=== PATIENT | female | born 1995 | race Caucasian/White ===

== ENCOUNTER → 2019-03-06 | Outpatient (CLI) | payer BC | LOC: LB 03:20 | PROVIDERS: ATTEND Obstetrics & Gynecology | DX: Z34.03 Encounter for supervision of normal first pregnancy, third trimester (principal); Z13.0 Encounter for screening for diseases of the blood and blood-forming organs and certain disorders involving the immune mechanism; Z11.4 Encounter for screening for human immunodeficiency virus [HIV]; Z11.59 Encounter for screening for other viral diseases | CPT/HCPCS: 36415; 86592; 86701 ==

== ENCOUNTER 2019-06-02 07:44 | Inpatient (IN) | payer BC ==
[2019-06-02 08:11] LABS: APPEARANCE,URINE SLIGHTLY-CLOUDY; BILIRUBIN,URINE NEGATIVE (NEGATIVE); COLOR,URINE YELLOW; GLUCOSE, URINE NEGATIVE (NEGATIVE); KETONES,URINE NEGATIVE (NEGATIVE); LEUKOCYTE ESTERASE,URINE NEGATIVE (NEGATIVE); NITRITE,URINE NEGATIVE (NEGATIVE); PROTEIN,URINE 30 mg/dL (NEGATIVE); URINE SPECIFIC GRAVITY 1.025; UROBILINOGEN,URINE NEGATIVE mg/dL (<2.0)
[2019-06-02] MEDS ORDERED: OXYTOCIN/NORMAL SALINE 20 UNIT/1,000 ML RTUINJ IV PRN (08:25)
[2019-06-02 08:33] LABS: URINE AMPHETAMINES SCREEN NEGATIVE; URINE BARBITURATES SCREEN NEGATIVE; URINE BENZODIAZEPINES SCREEN NEGATIVE; URINE COCAINE SCREEN NEGATIVE; URINE MARIJUANA (THC) SCREEN NEGATIVE; URINE METHADONE SCREEN NEGATIVE; URINE PHENCYCLIDINE SCREEN NEGATIVE
[2019-06-02] MEDS: RINGERS SOLUTION,LACTATED 1,000 ML IV PRN ×2 (08:40→16:41)
[2019-06-02] MEDS ORDERED: OXYTOCIN 10 UNIT/ML VIAL ONE (09:06)
[2019-06-02] MEDS ORDERED: MISOPROSTOL 0.2 MG TABLET ONE (09:06)
[2019-06-02] MEDS ORDERED: LIDOCAINE 1% INJ-PF (10 MG/ML) 30 ML SDV ONE (09:06)
[2019-06-02] MEDS ORDERED: OXYTOCIN/NORMAL SALINE 20 UNIT/1,000 ML RTUINJ ONE (09:06)
[2019-06-02 09:49] LABS: ABSOLUTE EOSINOPHILS # (AUTO) 0.1 10^3/uL (0.0-0.6); ABSOLUTE MONOCYTES (AUTO) 0.7 10^3/uL (0.1-1.4); ABSOLUTE NEUT (AUTO) 5.1 10^3/uL (1.7-8.2); BASOPHILS % (AUTO) 0.5 % (0-2); HEMATOCRIT 36.4 % (36.0-47.0); HEMOGLOBIN 12.1 g/dL (12.0-15.5); LYMPHOCYTES % (AUTO) 25.3 % (13-45); MEAN CORPUSCULAR HEMOGLOBIN 27.9 pg (27.0-33.4); MEAN CORPUSCULAR HGB CONC 33.2 g/dL (32.0-36.0); MEAN CORPUSCULAR VOLUME 84 fl (80-97); MONOCYTES % (AUTO) 9.2 % (3-13); PLATELET COUNT 102 10^3/uL (150-450); RED BLOOD COUNT 4.33 10^6/uL (3.72-5.28); RED CELL DISTRIBUTION WIDTH 20.1 % (11.5-14.0); TOTAL CELLS COUNTED % (AUTO) 100 %; WHITE BLOOD COUNT 7.9 10^3/uL (4.0-10.5)
--- NOTE | 2019-06-02 09:52 | Warning Signs in Babies ---
VOD Warning Signs Datetime Report Generated by [facility]: 06/02/2019 09:52 VOD#608 -Warning Signs in Babies: Viewed with Parent(s)/Family (06/02/2019 09:51:Don Patel RN)
--- NOTE | 2019-06-02 10:14 | Admission Physical ---
Datetime Report Generated by CPN: 06/02/2019 10:13 CURRENT ADMISSION Chief Complaint: Suspected Ruptured Membranes Indication for Induction: PROM Admit Impression : Term, Intrauterine Admit Plan: Admit to Unit; Initiate Labor Induction Protocol ALLERGIES Medication Allergies: Yes Medication Allergies: latex/DE (06/02/2019) Latex: Latex Allergies Food Allergies: None Environmental Allergies: None OBSTETRICAL HISTORY : 1 Para: 0 Ectopic: 0 Livin Cesareans: 0 Gestational Diabetes: No Rh Sensitization: No Incompetent Cervix: No ISABEL: No Infertility: No ART Treatment: No Uterine Anomaly: No IUGR: No Hx Previous C/S: No Macrosomia: No Hx Loss/Stillborn: No PIH: No Hx : No Placenta Previa/Abruption: No Depression/PP Depression: No PTL/PROM: No Post Hemorrhage: No Current Procedures: Ultrasound; NST Obstetrical History Comments: G1- Current. IOL scheduled for 06/03/2019 for Post dates SEE RECORDS Alcohol: No Marijuana : No Cocaine: No Other Illicit Drugs: No Cigarettes: Never Smoker. 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 Heart Disease: No Hosp/Surgery: Yes Autoimmune Disorder: No Anesthetic Complications: No Kidney Disease: No Abnormal Pap Smear: No Neuro/Epilepsy: No Psychiatric Disorders: No Other Medical Diseases: No Hepatitis/Liver Disease: No Significant Family History: No Varicosities/Phlebitis: No Trauma/Violence : No Thyroid Dysfunction: No Medical History Comments: Tonsillectomy and Adenoidectomy INFECTIOUS HISTORY Gonorrhea: No Genital Herpes: No Chlamydia: No Tuberculosis: No Syphilis: No Hepatitis: No HIV/AIDS Exposure: No Rash or Viral Illness: No HPV: No PHYSICAL EXAM General: Normal HEENT: Normal Neurologic: Normal Thyroid: Normal Heart: Normal Lungs: Normal Breast: Deferred Back: Normal Abdomen: Normal Genitourinary Exam: Normal Extremities: Normal DTRs: Normal Pelvic Type: Adequate Vital Signs: Reviewed VAGINAL EXAM Dilatation: 2 Effacement: 50 Station: -2 MEMBRANES Pooling: Negative Membranes: Ruptured FETUS A Monitoring: External US FHR- Baseline: 120 Variability: Moderate 6-25bpm Decelerations: None FHR Category: Category I Presentation: Vertex Admit Comment: Admit to labor and delivery. PLANS FOR LABOR AND DELIVERY Labor and Delivery: None Pain Management: Medications; Epidural Feeding Preference: Breast Benefit of Breast Feed Discussed: Yes Circumcision: Yes INFORMED CONSENT Signature: with User ID: [email or web address]
[2019-06-02 11:06] LABS: ABSOLUTE BASOPHILS # (AUTO) 0.1 10^3/uL (0.0-0.2); ABSOLUTE EOSINOPHILS # (AUTO) 0.1 10^3/uL (0.0-0.6); ABSOLUTE LYMPHOCYTES (AUTO) 1.7 10^3/uL (0.5-4.7); ABSOLUTE MONOCYTES (AUTO) 0.5 10^3/uL (0.1-1.4); ABSOLUTE NEUT (AUTO) 5.6 10^3/uL (1.7-8.2); BASOPHILS % (AUTO) 0.8 % (0-2); EOSINOPHILS % (AUTO) 0.7 % (0-6); HEMATOCRIT 35.9 % (36.0-47.0); HEMOGLOBIN 12.2 g/dL (12.0-15.5); LYMPHOCYTES % (AUTO) 21.2 % (13-45); MEAN CORPUSCULAR HEMOGLOBIN 28.4 pg (27.0-33.4); MEAN CORPUSCULAR HGB CONC 34.1 g/dL (32.0-36.0); MEAN CORPUSCULAR VOLUME 83 fl (80-97); MONOCYTES % (AUTO) 5.8 % (3-13); PLATELET COUNT 100 10^3/uL (150-450); RED BLOOD COUNT 4.31 10^6/uL (3.72-5.28); SEGMENTED NEUTROPHILS % (AUTO) 71.5 % (42-78); TOTAL CELLS COUNTED % (AUTO) 100 %; WHITE BLOOD COUNT 7.8 10^3/uL (4.0-10.5)
[2019-06-02 19:42] LABS: ABSOLUTE BASOPHILS # (AUTO) 0.1 10^3/uL (0.0-0.2); ABSOLUTE LYMPHOCYTES (AUTO) 1.2 10^3/uL (0.5-4.7); ABSOLUTE MONOCYTES (AUTO) 0.7 10^3/uL (0.1-1.4); BASOPHILS % (AUTO) 0.8 % (0-2); EOSINOPHILS % (AUTO) 0.4 % (0-6); HEMATOCRIT 36.3 % (36.0-47.0); HEMOGLOBIN 12.4 g/dL (12.0-15.5); LYMPHOCYTES % (AUTO) 13.4 % (13-45); MEAN CORPUSCULAR HEMOGLOBIN 28.6 pg (27.0-33.4); MEAN CORPUSCULAR HGB CONC 34.3 g/dL (32.0-36.0); MEAN CORPUSCULAR VOLUME 84 fl (80-97); MONOCYTES % (AUTO) 8.1 % (3-13); PLATELET COUNT 104 10^3/uL (150-450); RED BLOOD COUNT 4.35 10^6/uL (3.72-5.28); RED CELL DISTRIBUTION WIDTH 19.8 % (11.5-14.0); SEGMENTED NEUTROPHILS % (AUTO) 77.3 % (42-78); TOTAL CELLS COUNTED % (AUTO) 100 %
[2019-06-02] MEDS ORDERED: EPHEDRINE SULFATE INJ 50 MG/1 ML AMPULE ONE (20:05)
[2019-06-02] MEDS ORDERED: FENTANYL/BUPIVACAINE/NS/PF 300 MCG/150 ML RTUINJ EPI ONE (20:05)
[2019-06-02] MEDS ORDERED: BUPIVACAINE HCL 0.25 % INJ/PF (2.5 MG/1 ML) 30 ML VIAL ONE (20:05)
[2019-06-03] MEDS ORDERED: ACETAMINOPHEN WITH CODEINE #3 TABLET PO PRN ×2 (02:00)
[2019-06-03] MEDS ORDERED: BENZOCAINE/MENTHOL AEROSOL SPRAY 56 ML TOP PRN (02:00)
[2019-06-03] MEDS ORDERED: GLYCERIN/WITCH HAZEL LEAF 1 EACH MED..WIPE TP PRN (02:00)
[2019-06-03] MEDS ORDERED: PROMETHAZINE HCL 25 MG TABLET PO PRN (02:00)
[2019-06-03] MEDS ORDERED: MAGNESIUM HYDROXIDE SUSP 30 ML UDCUP PO PRN (02:00)
[2019-06-03] MEDS ORDERED: DIPH/PERTUSS(ACELL)/TETANUS VAC/PF 0.5 ML SYR (>=10YO) IM PRN (02:00)
[2019-06-03] MEDS ORDERED: PROMETHAZINE HCL 25 MG SUPP.RECT PR PRN (02:00)
[2019-06-03] MEDS ORDERED: NA PHOS,M-B/NA PHOS,DI-BA (ADULT) 133 ML ENEMA PR PRN (02:00)
[2019-06-03] MEDS ORDERED: DIBUCAINE 1% OINTMENT 28 GM TP PRN (02:00)
[2019-06-03] MEDS ORDERED: DIPHENHYDRAMINE HCL 25 MG CAPSULE PO PRN (02:00)
[2019-06-03] MEDS ORDERED: PROMETHAZINE HCL INJ 25 MG/1 ML VIAL IV PRN (02:00)
[2019-06-03] MEDS ORDERED: ACETAMINOPHEN 650 MG SUPP.RECT PR PRN (02:00)
[2019-06-03] MEDS ORDERED: MEASLES,MUMPS&RUBELLA VACC/PF 0.5 ML VIAL SUBCUT PRN (02:00)
[2019-06-03] MEDS ORDERED: PSEUDOEPHEDRINE HCL 30 MG TABLET PO PRN (02:00)
[2019-06-03] MEDS ORDERED: OXYTOCIN/NORMAL SALINE 20 UNIT/1,000 ML RTUINJ IV PRN (02:00)
[2019-06-03] MEDS ORDERED: ZOLPIDEM TARTRATE 5 MG TABLET PO PRN (02:00)
--- NOTE | 2019-06-03 02:43 | Delivery Summary ---
Del Sum A-C Datetime Report Generated by CPN: 06/03/2019 02:43 DELIVERY PERSONNEL DELIVERY PERSONNEL: [id number] Delivery Doctor:: Missy Dunbar MD Labor and Delivery Nurse:: Christina Kang RNphp programmer Nurse:: Eunice Morin RN Ccnp/EXCEL ANALYST: Jenny Theo, ST MATERNAL INFORMATION Delivery Anesthesia: Epidural Medications After Delivery: Pitocin Bolus-Please Comment; Pitocin Drip 20 Units/1000ml NSS Meds After Delivery Comment: Pitocin 20 units in 1000 mL NS bolusing Delivery QBL: 250 Maternal Complications: None LABOR SUMMARY EDC: 05/29/2019 00:00 No. Babies in Womb: 1 Attempted: No Labor Anesthesia: Epidural LABOR INFORMATION Reason for Induction: Not Applicable Onset of Labor: 06/02/2019 08:24 Complete Dilatation: 06/03/2019 01:06 Oxytocin: Augmentation Group B Beta Strep: negative Antibiotics # of Doses: 0 Steroids Given: None Reason Steroids Not Administered: Not Applicable MEMBRANES Membranes Rupture Method: Spontaneous Rupture of Membranes: 06/02/2019 07:30 Length of Rupture (hr): 18.33 Amniotic Fluid Color: Clear Amniotic Fluid Amount: Moderate Amniotic Fluid Odor: Normal STAGES OF LABOR Stage 1 hr: 16 Stage 1 min: 42 Stage 2 hr: 0 Stage 2 min: 44 Stage 3 hr: 0 Stage 3 min: 6 Total Time in Labor hr: 17 Total Time in Labor min: 32 VAGINAL DELIVERY Episiotomy: None Laceration #1: Vaginal Laceration Extension #1: N/A Laceration #2: None Laceration Extension #2: N/A Laceration #3: None Laceration Extension #3: N/A Laceration Repair: Yes Laceration Repair Note: Right labial laceration repaired with 2 sutures of 3-0 chromic. Sponge Count Correct: Vaginal Sweep Performed Sharps Count Correct: Yes CSECTION DELIVERY Primary Indication: N/A Secondary Indication: N/A CSection Incidence: N/A Labor: N/A Elective: N/A CSection Incision: N/A BABY A INFORMATION Delivery Date/Time: 06/03/2019 01:50 Method of Delivery: Vaginal Nurse Controlled Delivery: No Born in Route : No : N/A Forceps: N/A Vacuum Extraction: N/A Shoulder Dystocia : No PRESENTATION/POSITION BABY A Presentation: Cephalic Cephalic Presentation: Vertex Vertex Position: OA Breech Presentation: N/A PLACENTA INFORMATION BABY A Placenta Delivery Time : 06/03/2019 01:56 Placenta Method of Delivery: Spontaneous Placenta Status: Delivered SCORES BABY A Heart Rate 1 min: >100 bpm Resp Effort 1 min: Good Cry Reflex Irritability 1 min: Cough or Sneeze or Pulls Away Muscle Tone 1 min: Active Motion Color 1 min: Body [place], Extremities Blue Resuscitation Effort 1 min: Tactile Stimulation SCORE 1 MIN: 9 Heart Rate 5 min: >100 bpm Resp Effort 5 min: Good Cry Reflex Irritability 5 min: Cough or Sneeze or Pulls Away Muscle Tone 5 min: Active Motion Color 5 min: Body [place], Extremities Blue Resuscitation Effort 5 min: Tactile Stimulation SCORE 5 MIN: 9 INFANT INFORMATION BABY A Gestational Age at Delivery: 40.5 Gestational Status: Full Term- 39- 40.6 Weeks Infant Outcome : Liveborn Infant Condition : Stable Sex: Male IDENTIFICATION BABY A Verification Date/Time: 06/03/2019 02:16 ID Band Number: [id number] Mother's Name Verified: Yes Infant RN Verifying : Marilou Kang, RN Additional Verifying Personnel: Edna DixonCareFamilyamy, RN WEIGHT/LENGTH BABY A Birthweight (gm): 4053 Infant Weight (lb): 8 Infant Weight (oz): 15 Infant Length (in): 21.00 Length (cm): 53.34 CORD INFORMATION BABY A No. Cord Vessels: 3 Nuchal Cord : N/A Cord Blood Taken: Yes-For Eval (Mom's Blood Type - or O+) Suction: Mouth ASSESSMENT BABY A Infant Complications: None Physical Findings at Delivery: Within Normal Limits Skin to Skin: Yes Skin to Skin Time (min): 20 Transferred To: Remains with Mother BABY B INFORMATION : N/A SIGNATURES Signature: with User ID: [email or web address]
[2019-06-03 03:24] LABS: ABSOLUTE LYMPHOCYTES (AUTO) 0.9 10^3/uL (0.5-4.7); ABSOLUTE MONOCYTES (AUTO) 0.8 10^3/uL (0.1-1.4); ABSOLUTE NEUT (AUTO) 12.2 10^3/uL (1.7-8.2); BASOPHILS % (AUTO) 0.3 % (0-2); EOSINOPHILS % (AUTO) 0.1 % (0-6); HEMATOCRIT 37.7 % (36.0-47.0); HEMOGLOBIN 12.3 g/dL (12.0-15.5); LYMPHOCYTES % (AUTO) 6.1 % (13-45); MEAN CORPUSCULAR HEMOGLOBIN 27.4 pg (27.0-33.4); MEAN CORPUSCULAR HGB CONC 32.5 g/dL (32.0-36.0); MEAN CORPUSCULAR VOLUME 85 fl (80-97); MONOCYTES % (AUTO) 5.7 % (3-13); PLATELET COUNT 107 10^3/uL (150-450); RED BLOOD COUNT 4.47 10^6/uL (3.72-5.28); SEGMENTED NEUTROPHILS % (AUTO) 87.8 % (42-78); TOTAL CELLS COUNTED % (AUTO) 100 %; WHITE BLOOD COUNT 13.9 10^3/uL (4.0-10.5)
[2019-06-03] MEDS: IBUPROFEN 800 MG TABLET PO SCH ×3 (07:08→22:43)
[2019-06-03] MEDS: SENNOSIDES/DOCUSATE 8.6-50 MG 1 EACH TABLET PO SCH (09:47)
[2019-06-03] MEDS: PRENATAL VITAMIN W DHA CAPSULE PO SCH (09:47)
[2019-06-03] MEDS: DOCUSATE SODIUM 100 MG CAPSULE PO SCH ×2 (09:47→17:19)
[2019-06-03] MEDS: FERROUS SULFATE 325 MG TABLET PO SCH ×2 (09:47→17:19)
[2019-06-03] MEDS: FAMOTIDINE 20 MG TABLET PO SCH ×2 (09:48→22:43)
[2019-06-04] MEDS: IBUPROFEN 800 MG TABLET PO SCH (05:18)
[2019-06-04 08:23] LABS: HEMATOCRIT 34.5 % (36.0-47.0); HEMOGLOBIN 11.5 g/dL (12.0-15.5); MEAN CORPUSCULAR HEMOGLOBIN 28.4 pg (27.0-33.4); MEAN CORPUSCULAR HGB CONC 33.4 g/dL (32.0-36.0); MEAN CORPUSCULAR VOLUME 85 fl (80-97); PLATELET COUNT 107 10^3/uL (150-450); RED BLOOD COUNT 4.05 10^6/uL (3.72-5.28); RED CELL DISTRIBUTION WIDTH 20.4 % (11.5-14.0); WHITE BLOOD COUNT 10.2 10^3/uL (4.0-10.5)
--- NOTE | 2019-06-04 09:59 | PDOC DISCHARGE SUMMARY ---
Impression - Admit/DC Date/PCP Admission Date/Primary Care Provider: 06/02/19 08:18 GERMANIA PEPE MD Discharge Date: 06/04/19 - PP Day #1, doing well, pt desries to go home today. O+. Rubella Immune, . UOB voiding, no complaints - Discharge Diagnosis (1) (normal spontaneous vaginal delivery) Is this a current diagnosis for this admission?: Yes (2) Gestational thrombocytopenia without hemorrhage Is this a current diagnosis for this admission?: Yes (3) Normal course Is this a current diagnosis for this admission?: Yes - Additional Information Resuscitation Status: Full Code Discharge Diet: As Tolerated, Regular Discharge Activity: Activity As Tolerated, No Lifting Over 10 Pounds, Pelvic Rest Referrals: GERMANIA PEEP MD [Primary Care Provider] - Prescriptions: Ibuprofen [Motrin 800 mg Tablet] 800 mg PO Q8 #60 tablet Home Medications: Calcium Carbonate [Calcium] 500 mg PO DAILY 06/02/19 Vit No.130/Iron/Folic [ Tablet] 1 each PO DAILY 06/02/19 Ibuprofen [Motrin 800 mg Tablet] 800 mg PO Q8 #60 tablet 06/04/19 HPI Reason(s) for Admission: Onset of Labor Procedures: Ultrasound Intrapartum Procedure(s): Spontaneous Vaginal Delivery Complication(s): Laceration-Labial Results Laboratory Results: WBC 10.2 10^3/uL (4.0-10.5) 06/04/19 07:30 RBC 4.05 10^6/uL (3.72-5.28) 06/04/19 07:30 Hgb 11.5 g/dL (12.0-15.5) L 06/04/19 07:30 Hct 34.5 % (36.0-47.0) L 06/04/19 07:30 MCV 85 fl (80-97) 06/04/19 07:30 MCH 28.4 pg (27.0-33.4) 06/04/19 07:30 MCHC 33.4 g/dL (32.0-36.0) 06/04/19 07:30 RDW 20.4 % (11.5-14.0) H 06/04/19 07:30 Plt Count 107 10^3/uL (150-450) L 06/04/19 07:30 Lymph % (Auto) 6.1 % (13-45) L 06/03/19 03:16 [place] % (Auto) 5.7 % (3-13) 06/03/19 03:16 Eos % (Auto) 0.1 % (0-6) 06/03/19 03:16 Baso % (Auto) 0.3 % (0-2) 06/03/19 03:16 Absolute Neuts (auto) 12.2 10^3/uL (1.7-8.2) H 06/03/19 03:16 Absolute Lymphs (auto) 0.9 10^3/uL (0.5-4.7) 06/03/19 03:16 Absolute Monos (auto) 0.8 10^3/uL (0.1-1.4) 06/03/19 03:16 Absolute Eos (auto) 0.0 10^3/uL (0.0-0.6) 06/03/19 03:16 Absolute Basos (auto) 0.0 10^3/uL (0.0-0.2) 06/03/19 03:16 Seg Neutrophils % 87.8 % (42-78) H 06/03/19 03:16 Urine Color YELLOW 06/02/19 07:48 Urine Appearance SLIGHTLY-CLOUDY 06/02/19 07:48 Urine pH 6.0 (5.0-9.0) 06/02/19 07:48 Ur Specific [place] 1.025 06/02/19 07:48 Urine Protein 30 mg/dL (NEGATIVE) H 06/02/19 07:48 Urine Glucose (UA) NEGATIVE mg/dL (NEGATIVE) 06/02/19 07:48 Urine Ketones NEGATIVE mg/dL (NEGATIVE) 06/02/19 07:48 Urine Blood NEGATIVE (NEGATIVE) 06/02/19 07:48 Urine Nitrite NEGATIVE (NEGATIVE) 06/02/19 07:48 Urine Bilirubin NEGATIVE (NEGATIVE) 06/02/19 07:48 Urine Urobilinogen NEGATIVE mg/dL (<2.0) 06/02/19 07:48 Ur Leukocyte Esterase NEGATIVE (NEGATIVE) 06/02/19 07:48 Urine Ascorbic Acid 40 (NEGATIVE) H 06/02/19 07:48 Membranes Rupture POSITIVE (NEGATIVE) H 06/02/19 07:48 Urine Opiates Screen NEGATIVE 06/02/19 07:48 Urine Methadone Screen NEGATIVE 06/02/19 07:48 Ur Barbiturates Screen NEGATIVE 06/02/19 07:48 Ur Phencyclidine Scrn NEGATIVE 06/02/19 07:48 Ur Amphetamines Screen NEGATIVE 06/02/19 07:48 U Benzodiazepines Scrn NEGATIVE 06/02/19 07:48 Urine Cocaine Screen NEGATIVE 06/02/19 07:48 U Marijuana (THC) Screen NEGATIVE 06/02/19 07:48 RPR NONREACTIVE (NONREACTIVE) 06/02/19 08:55 Blood Type O POSITIVE 06/02/19 08:55 Antibody Screen NEGATIVE 06/02/19 08:55 Plan Plan of Treatment: d/c to home, f/up with [facility] in 4 wks for PP check Time Spent: Less than 30 Minutes
[2019-06-04] MEDS: PRENATAL VITAMIN W DHA CAPSULE PO SCH (10:27)
[2019-06-04] MEDS: FAMOTIDINE 20 MG TABLET PO SCH (10:27)
[2019-06-04] MEDS: SENNOSIDES/DOCUSATE 8.6-50 MG 1 EACH TABLET PO SCH (10:27)
[2019-06-04] MEDS: DOCUSATE SODIUM 100 MG CAPSULE PO SCH (10:28)
[2019-06-04] MEDS: FERROUS SULFATE 325 MG TABLET PO SCH (10:28)
[2019-06-04 10:51] VITALS: BP 115/80
== END 2019-06-04 14:18 | disposition home or self-care (01) | DRG 806 ==
LOC: LC 07:44 → LR 08:18 → 2S 06-03 03:56
PROVIDERS: ADMIT Obstetrics & Gynecology; ATTEND Obstetrics & Gynecology
PROC: 10E0XZZ Delivery of Products of Conception, External Approach (ICD-10-PCS; principal; 2019-06-03)
PROC: 0UQGXZZ Repair Vagina, External Approach (ICD-10-PCS; 2019-06-03)
DX: O42.02 Full-term premature rupture of membranes, onset of labor within 24 hours of rupture (principal); O71.4 Obstetric high vaginal laceration alone; Z37.0 Single live birth; O99.12 Other diseases of the blood and blood-forming organs and certain disorders involving the immune mechanism complicating childbirth; Z3A.40 40 weeks gestation of pregnancy; Z91.040 Latex allergy status
CPT/HCPCS: 36415; 80307; 81005; 84112; 85025; 85027; 86592; 86850; 86900; 86901; J2590; J3010; J3490